=== PATIENT | male | born 1945 | race African-American/Black ===

== ENCOUNTER 2017-05-26 12:06 | Inpatient (IN) | payer MEDICARE, OTHER ==
[~2017-05-26] VITALS: Ht 175.3 cm; Wt 81.6 kg
[2017-05-26 13:15] VITALS: BP 156/80
[2017-05-26] MEDS ORDERED: NIFE60TA14 PO (13:28)
[2017-05-26] MEDS ORDERED: ASPI-612 PO (13:28)
[2017-05-26 13:52] VITALS: BP 130/75
[2017-05-26] MEDS: IV NORMAL SALINE 1,000ML 1,000 ML IV SCH ×2 (14:00→22:19)
[2017-05-26] MEDS ORDERED: DEXTROSE 50% 25 GM / 50ML DISP.SYRIN. IV PRN (14:00)
[2017-05-26] MEDS ORDERED: ENOXAPARIN 40 MG/0.4 ML DISP.SYRIN. SQ SCH (14:00)
[2017-05-26 14:30] VITALS: BP 130/72
[2017-05-26 14:31] LABS: BASO # 0.1 x10^3/uL (0.0-0.2); BASO % 1 % (0-3); EOS # 0.1 x10^3/uL (0.0-0.7); EOS % 1 % (0-3); HEMOGLOBIN 13.4 g/dL (13.0-17.5); LYMPH # 1.2 x10^3/uL (1.0-4.8); LYMPH % 18 % (24-48); MEAN CORPUSCULAR HEMOGLOBIN 30 pg (25-35); MEAN CORPUSCULAR HGB CONC 34 g/dL (31-37); MEAN CORPUSCULAR VOLUME 90 fL (79-100); MONO # 0.5 x10^3/uL (0.0-1.1); MONO % 8 % (0-9); NEUT # 4.8 x10^3uL (1.8-7.7); NEUT % 72 % (31-73); PLATELET COUNT 242 x10^3/uL (140-400); RED BLOOD COUNT 4.45 x10^6/uL (4.30-5.70); RED CELL DISTRIBUTION WIDTH 14.1 % (11.5-14.5); WHITE BLOOD COUNT 6.7 x10^3/uL (4.0-11.0)
[2017-05-26 14:44] LABS: ALBUMIN 3.8 g/dL (3.4-5.0); CALCIUM 9.4 mg/dL (8.5-10.1); GFR 89.1; MAGNESIUM 1.9 mg/dL (1.8-2.4); POTASSIUM 3.9 mmol/L (3.5-5.1); TOTAL BILIRUBIN 0.4 mg/dL (0.2-1.0); TOTAL PROTEIN 7.7 g/dL (6.4-8.2)
[2017-05-26 15:16] LABS: FECAL OB PT POSITIVE (NEG)
[2017-05-26 15:38] VITALS: BP 135/65
--- NOTE | 2017-05-26 15:54 | RAD ---
2 view CXR: Clinical indications: Diabetic ketoacidosis. Hypertension. Former smoker.. Comparison: March 15, 2012. Findings: No acute lung infiltrate or pleural effusion or pulmonary edema or lung mass or pneumothorax is seen. The heart size, pulmonary vasculature, mediastinum and both donna are unremarkable. The osseous structures appear intact. Impression: No acute radiographic abnormality is seen.
[2017-05-26] MEDS: INSULIN ASPART 300 UNITS/3 ML INSULN.PEN SQ SCH ×2 (17:11→19:49)
[2017-05-26 18:38] VITALS: BP 154/76
[2017-05-26] MEDS ORDERED: INSULIN DETEMIR 300 UNITS/3 ML INSULN.PEN. SQ SCH (21:00)
[2017-05-26] MEDS ORDERED: PNEUMOC CONJ VACC 23-VALENT 0.5 ML VIAL. VAX IM ONE (21:00)
[2017-05-26 22:05] VITALS: BP 161/78
[2017-05-26 22:45] LABS: BACTERIA,URINE 0 /HPF (0-FEW); BILIRUBIN,URINE NEG (NEG); CLARITY,URINE CLEAR; COLOR,URINE YELLOW; GLUCOSE,URINE >=1000 mg/dL (NEG); NITRITE,URINE NEG (NEG); RBC,URINE OCC /HPF (0-2); SQUAMOUS EPITHELIAL CELL,UR FEW /LPF; UROBILINOGEN,URINE 0.2 mg/dL (0.2 mg/dL)
[2017-05-27] VITALS (7 sets, daily range): BP systolic 134–160; BP diastolic 67–74
[2017-05-27 01:08] LABS: HEMOGLOBIN A1C 11.4 % (4.8-5.6)
[2017-05-27] MEDS: IV NORMAL SALINE 1,000ML 1,000 ML IV SCH ×4 (04:27→21:53)
[2017-05-27] MEDS ORDERED: ACETAMINOPHEN 500 MG TABLET PO PRN (04:45)
[2017-05-27 07:12] LABS: CREATININE 0.9 mg/dL (0.7-1.3); GFR 100.7; POTASSIUM 3.8 mmol/L (3.5-5.1)
[2017-05-27 07:32] LABS: BASO # 0.1 x10^3/uL (0.0-0.2); BASO % 1 % (0-3); EOS # 0.4 x10^3/uL (0.0-0.7); EOS % 6 % (0-3); HEMATOCRIT 38.4 % (39.0-53.0); HEMOGLOBIN 12.9 g/dL (13.0-17.5); LYMPH # 1.7 x10^3/uL (1.0-4.8); LYMPH % 27 % (24-48); MEAN CORPUSCULAR HEMOGLOBIN 30 pg (25-35); MEAN CORPUSCULAR HGB CONC 34 g/dL (31-37); MEAN CORPUSCULAR VOLUME 89 fL (79-100); MONO # 0.7 x10^3/uL (0.0-1.1); MONO % 10 % (0-9); NEUT # 3.6 x10^3uL (1.8-7.7); NEUT % 56 % (31-73); PLATELET COUNT 228 x10^3/uL (140-400); RED BLOOD COUNT 4.29 x10^6/uL (4.30-5.70); WHITE BLOOD COUNT 6.4 x10^3/uL (4.0-11.0)
[2017-05-27] MEDS: PANTOPRAZOLE 40 MG TABLET. PO SCH (07:33)
[2017-05-27] MEDS: INSULIN ASPART 300 UNITS/3 ML INSULN.PEN SQ SCH ×4 (08:22→21:56)
[2017-05-27] MEDS ORDERED: PNEUMOC CONJ VACC 23-VALENT 0.5 ML VIAL. VAX IM ONE (09:00)
[2017-05-27] MEDS: metFORMIN 500 MG TABLET PO SCH (09:47)
[2017-05-27] MEDS: IPRATRPIUM/ALBUTEROL 0.5/2.5MG 3 ML NEBU. NEB SCH ×3 (11:03→21:28)
[2017-05-27] MEDS: INSULIN DETEMIR 300 UNITS/3 ML INSULN.PEN. SQ SCH (21:57)
[2017-05-28 03:00] VITALS: BP 163/75
[2017-05-28] MEDS: IV NORMAL SALINE 1,000ML 1,000 ML IV SCH (05:00)
[2017-05-28] MEDS: IPRATRPIUM/ALBUTEROL 0.5/2.5MG 3 ML NEBU. NEB SCH ×2 (06:03→11:02)
[2017-05-28 07:53] LABS: BASO # 0.1 x10^3/uL (0.0-0.2); BASO % 1 % (0-3); EOS # 0.4 x10^3/uL (0.0-0.7); EOS % 6 % (0-3); HEMATOCRIT 36.5 % (39.0-53.0); HEMOGLOBIN 12.2 g/dL (13.0-17.5); LYMPH # 1.7 x10^3/uL (1.0-4.8); LYMPH % 25 % (24-48); MEAN CORPUSCULAR HEMOGLOBIN 30 pg (25-35); MEAN CORPUSCULAR HGB CONC 34 g/dL (31-37); MEAN CORPUSCULAR VOLUME 90 fL (79-100); MONO # 0.7 x10^3/uL (0.0-1.1); MONO % 11 % (0-9); NEUT # 3.9 x10^3uL (1.8-7.7); NEUT % 57 % (31-73); PLATELET COUNT 222 x10^3/uL (140-400); RED BLOOD COUNT 4.07 x10^6/uL (4.30-5.70); RED CELL DISTRIBUTION WIDTH 14.3 % (11.5-14.5); WHITE BLOOD COUNT 6.7 x10^3/uL (4.0-11.0)
[2017-05-28 07:59] LABS: CALCIUM 8.8 mg/dL (8.5-10.1); CREATININE 0.7 mg/dL (0.7-1.3); GFR 134.5; POTASSIUM 3.4 mmol/L (3.5-5.1)
[2017-05-28] MEDS: metFORMIN 500 MG TABLET PO SCH (08:28)
[2017-05-28] MEDS: PANTOPRAZOLE 40 MG TABLET. PO SCH (08:28)
[2017-05-28] MEDS: INSULIN ASPART 300 UNITS/3 ML INSULN.PEN SQ SCH ×2 (08:31→11:30)
[2017-05-28] MEDS: INSULIN DETEMIR 300 UNITS/3 ML INSULN.PEN. SQ SCH (08:34)
[2017-05-28 09:32] VITALS: BP 125/73
[2017-05-28 11:13] VITALS: BP 144/65
[2017-05-28] MEDS ORDERED: INSU100I17 SQ (13:49)
[2017-05-28] MEDS ORDERED: INSU100I27 SQ (13:54)
[2017-05-28] MEDS ORDERED: PANT40TA3 PO (13:59)
[2017-05-28] MEDS ORDERED: METF500T4 PO (13:59)
--- NOTE | 2017-05-28 22:07 | PN ---
DATE: SUBJECTIVE: This is a 71-year-old gentleman who came in with problems of acute onset of DKA and type 2 diabetes. The patient's blood sugar has come down gradually. We have increased his insulin and started him on metformin. He states he is feeling much better overall. We will continue to monitor him on that and he is continuing to receive sliding scale in addition to his long-acting insulin. Otherwise, the patient denies any headaches, visual change, blurred vision, or double vision. OBJECTIVE: VITAL SIGNS: Blood pressure 140/60, respiratory rate 18, pulse 90, afebrile. LUNGS: Diminished throughout, poor movement of air. CARDIOVASCULAR: Regular sinus rhythm. ABDOMEN: Soft and nontender. ASSESSMENT AND PLAN: The patient is otherwise doing reasonably well with his labs improving overall. The patient will continue to be monitored carefully, make further evaluation, did have positive for blood in the stool and will continue to be monitored on that as an outpatient, probably will need to be scoped as well. In any case, impression, new onset of diabetes, diabetic ketoacidosis, positive blood in the stool. We will continue to monitor the patient, accordingly make further evaluation on him as indicated, diabetic teaching for diet and so forth and so on. MCKINLEY TORRES MD DR: SAWYER/brittany JOB#: [id number] / [id number]
== END 2017-05-28 14:45 | disposition home or self-care (01) | DRG 638 ==
LOC: ICU 12:06
PROVIDERS: ADMIT Family Medicine; ATTEND Family Medicine
DX: E11.10 Type 2 diabetes mellitus with ketoacidosis without coma (principal); K92.1 Melena; F17.210 Nicotine dependence, cigarettes, uncomplicated; I10 Essential (primary) hypertension; Z81.8 Family history of other mental and behavioral disorders; K92.89 Other specified diseases of the digestive system
CPT/HCPCS: 36415; 71020; 80048; 80053; 81001; 82274; 82947; 83036; 83735; 84443; 85025; 87641; 90732; 94640; J1815; J7620; J7030

== ENCOUNTER 2017-06-02 10:35 | Emergency (ER) | payer MEDICARE, OTHER ==
[~2017-06-02] VITALS: Ht 175.3 cm; Wt 81.6 kg
[~2017-06-02 10:35] MED LIST: ASPI-612 PO; INSU100I17 SQ; INSU100I27 SQ; METF500T4 PO; NIFE60TA14 PO; PANT40TA3 PO
--- NOTE | 2017-06-02 10:52 | PHYS DOC ---
Past History Past Medical History: Diabetes, Hypertension Past Surgical History: No Surgical History Alcohol Use: None Drug Use: None Adult General Chief Complaint Chief Complaint: BLOOD SUGAR PROBLEM HPI HPI 71-year-old male patient states he was diagnosed with diabetes recently and discharged from Hospital one week ago with instruction to take 25 units of Levemir twice a day and 1-4 units of NovoLog according to blood sugar number. Patient states he woke up around 9 AM and took 25 units of NovoLog instead of Levemir around 10 AM. Patient states he did not take any other insulin today. Patient had 1 glass of orange juice after his mistake and his blood sugar was 214 by EMS. Patient denies dizziness, confusion, nausea and vomiting, weakness. Review of Systems Review of Systems Constitutional: Denies fever or chills [] Eyes: Denies change in visual acuity, redness, or eye pain [] HENT: Denies nasal congestion or sore throat [] Respiratory: Denies cough or shortness of breath [] Cardiovascular: No additional information not addressed in HPI [] GI: Denies abdominal pain, nausea, vomiting, bloody stools or diarrhea [] : Denies dysuria or hematuria [] Musculoskeletal: Denies back pain or joint pain [] Integument: Denies rash or skin lesions [] Neurologic: Denies headache, focal weakness or sensory changes [] Endocrine: Denies polyuria or polydipsia [] All other systems were reviewed and found to be within normal limits, except as documented in this note. Allergies Allergies Allergies Coded Allergies Type Severity Reaction Last Updated Verified No Known Drug Allergies 05/26/17 No Physical Exam Physical Exam Constitutional: Well developed, well nourished, no acute distress, non-toxic appearance. [] HENT: Normocephalic, atraumatic, bilateral external ears normal, oropharynx moist, no oral exudates, nose normal. [] Eyes: PERRLA, EOMI, conjunctiva normal, no discharge. [] Neck: Normal range of motion, no tenderness, supple, no stridor. [] Cardiovascular:Heart rate regular rhythm, no murmur [] Lungs & Thorax: Bilateral breath sounds clear to auscultation [] Abdomen: Bowel sounds normal, soft, no tenderness, no masses, no pulsatile masses. [] Skin: Warm, dry, no erythema, no rash. [] Back: No tenderness, no CVA tenderness. [] Extremities: No tenderness, no cyanosis, no clubbing, ROM intact, no edema. [] Neurologic: Alert and oriented X 3, normal motor function, normal sensory function, no focal deficits noted. [] Psychologic: Affect normal, judgement normal, mood normal. [] Current Patient Data Vital Signs Vital Signs Date Time Temp Pulse Resp B/P (MAP) Pulse Ox O2 Delivery O2 Flow Rate FiO2 06/02/17 10:40 97.9 116 18 100 Room Air EKG EKG [] Radiology/Procedures Radiology/Procedures [] Course & Med Decision Making Course & Med Decision Making Pertinent Labs reviewed. (See chart for details) Evaluation of patient in ER showed 71-year-old male patient who took insulin NovoLog 25 units instead of Levemir. Patient had blood sugar of 214 by EMS and more than 200 in ER at arrival. Blood sugar was 108 later on and after eating increased to 158. Patient was observed in ER more than 2 hours with a stable vital signs. Patient was instructed to check his blood sugar more often today and follow with his primary care physician in 2-3 days. [] Dragon Disclaimer Dragon Disclaimer This electronic medical record was generated, in whole or in part, using a voice recognition dictation system. Departure Departure: Impression: Primary Impression: Uncontrolled diabetes mellitus Disposition: HOME, SELF-CARE (At 1315) Condition: IMPROVED Referrals: MCKINLEY TORRES MD (PCP) Patient Instructions: 1800 Calorie Diet for Diabetes Meal Planning, Diabetes Meal Planning Guide Additional Instructions: Rechecked your blood sugar frequently today Follow-up with your primary care physician in 2 or 3 days Return to ER if not getting better SUHAS ALMAZAN MD Jun 02, 2017 10:52
[2017-06-02 11:09] LABS: BASO # 0.1 x10^3/uL (0.0-0.2); BASO % 1 % (0-3); EOS # 0.2 x10^3/uL (0.0-0.7); EOS % 3 % (0-3); HEMATOCRIT 37.9 % (39.0-53.0); HEMOGLOBIN 12.7 g/dL (13.0-17.5); LYMPH % 17 % (24-48); MEAN CORPUSCULAR HEMOGLOBIN 30 pg (25-35); MEAN CORPUSCULAR HGB CONC 34 g/dL (31-37); MEAN CORPUSCULAR VOLUME 89 fL (79-100); MONO # 0.6 x10^3/uL (0.0-1.1); MONO % 9 % (0-9); NEUT # 4.2 x10^3uL (1.8-7.7); NEUT % 70 % (31-73); PLATELET COUNT 254 x10^3/uL (140-400); RED BLOOD COUNT 4.24 x10^6/uL (4.30-5.70); RED CELL DISTRIBUTION WIDTH 13.8 % (11.5-14.5); WHITE BLOOD COUNT 6.1 x10^3/uL (4.0-11.0)
[2017-06-02 11:49] LABS: ALBUMIN 3.3 g/dL (3.4-5.0); ALBUMIN/GLOBULIN RATIO 0.9 (1.0-1.7); CALCIUM 9.1 mg/dL (8.5-10.1); CREATININE 0.9 mg/dL (0.7-1.3); GFR 100.7; POTASSIUM 3.8 mmol/L (3.5-5.1); TOTAL BILIRUBIN 0.4 mg/dL (0.2-1.0); TOTAL PROTEIN 6.9 g/dL (6.4-8.2)
[2017-06-02 12:34] LABS: BACTERIA,URINE 0 /HPF (0-FEW); BILIRUBIN,URINE NEG (NEG); CLARITY,URINE CLEAR; COLOR,URINE YELLOW; GLUCOSE,URINE 500 mg/dL (NEG); NITRITE,URINE NEG (NEG); RBC,URINE 0 /HPF (0-2); UROBILINOGEN,URINE 0.2 mg/dL (0.2 mg/dL); WBC,URINE 0 /HPF (0-4)
[2017-06-02 13:19] VITALS: BP 146/72
== END 2017-06-02 13:27 | disposition home or self-care (01) ==
LOC: ER 10:35
DX: E11.9 Type 2 diabetes mellitus without complications (principal); I10 Essential (primary) hypertension
CPT/HCPCS: 36415; 80053; 81001; 82947; 85025; 99284

== ENCOUNTER 2017-10-31 20:48 | Inpatient (IN) | payer MEDICARE, OTHER ==
[~2017-10-31] VITALS: Ht 175.3 cm; Wt 90.9 kg
[~2017-10-31 20:48] MED LIST changes: -METF500T4 PO; +METF500T5 PO
--- NOTE | 2017-10-31 21:50 | PHYS DOC ---
Past History Past Medical History: Diabetes, Hypertension Past Surgical History: Other Alcohol Use: None Drug Use: None Adult General Chief Complaint Chief Complaint: BLOODY STOOL HPI HPI Patient is a 71 year old male who presents with complaint of bloody stools. The patient states that he has been having trouble with diarrhea over the past 5 days. Patient went to see his primary doctor, Dr. Torres, 2 days ago for evaluation. He was instructed to provide stool samples at the next visit tomorrow. The patient however started passing blood in his stools today. He called his primary doctor and was told to come to the emergency department for evaluation. Patient denies any associated fevers. Patient states that he has had 2 stools with bright red blood present. Denies any history of GI bleeding. Patient is not on any blood thinners. Denies any pain currently but states that he had abdominal cramping prior to his bowel movements. Denies dizziness or lightheadedness. Review of Systems Review of Systems Constitutional: Denies fever or chills [] Eyes: Denies change in visual acuity, redness, or eye pain [] HENT: Denies nasal congestion or sore throat [] Respiratory: Denies cough or shortness of breath [] Cardiovascular: Denies chest pain or edema[] GI: Intermittent abdominal pain, bloody stools, diarrhea, denies nausea or vomiting[] : Denies dysuria or hematuria [] Musculoskeletal: Denies back pain or joint pain [] Integument: Denies rash or skin lesions [] Neurologic: Denies headache, focal weakness or sensory changes [] All other systems were reviewed and found to be within normal limits, except as documented in this note. Allergies Allergies Allergies Coded Allergies Type Severity Reaction Last Updated Verified No Known Drug Allergies 05/26/17 No Physical Exam Physical Exam Constitutional: Alert, afebrile, no acute distress. [] HENT: Normocephalic, atraumatic, bilateral external ears normal, oropharynx moist, no oral exudates, nose normal. [] Eyes: PERRLA, EOMI, conjunctiva normal, no discharge. [] Neck: Normal range of motion, no tenderness, supple, no stridor. [] Cardiovascular: Tachycardia, regular rhythm, no murmur [] Lungs & Thorax: Bilateral breath sounds clear to auscultation [] Abdomen: Bowel sounds normal, soft, no tenderness, no masses, no pulsatile masses. [] Skin: Warm, dry, no erythema, no rash. [] Back: No tenderness, no CVA tenderness. [] Extremities: No tenderness, no cyanosis, no clubbing, ROM intact, no edema. [] Neurologic: Alert and oriented X 3, normal motor function, normal sensory function, no focal deficits noted. [] Current Patient Data Vital Signs Vital Signs Date Time Temp Pulse Resp B/P (MAP) Pulse Ox O2 Delivery O2 Flow Rate FiO2 10/31/17 20:51 98.5 125 20 96 Room Air EKG EKG Interpreted by me: heart rate 104, sinus tachycardia, normal intervals, normal axis, no acute ST/T-wave abnormalities present[] Radiology/Procedures Radiology/Procedures [address] [address] IMAGING REPORT Signed PATIENT: MAYA VILLAGRAN ACCOUNT: [id number] : 1945 LOCATION: ER AGE: 71 SEX: M EXAM STATUS: REG ER ORD. PHYSICIAN: MIGUEL ÁNGEL KIM MD REASON: GI bleeding, diarrhea PROCEDURE: CT ABD PELV W/ IV CONTRST ONLY Indication:BRIGHT RED BLOOD IN STOOL, DIARRHEA, LOW PELVIC PAIN TECHNIQUE: CT abdomen and pelvis with IV contrast with multiplanar reformats. COMPARISON: None FINDINGS: Heart is normal in size. No pericardial or pleural effusion. Clear lung bases. Stable low attenuating lesion is seen in segment 7 of the liver measuring 2.1 x 1.6 cm most likely cystic biliary hamartoma. Otherwise, liver within normal limits. Spleen within normal limits. No radiopaque gallstones. Pancreas is within normal limits. 2.8 x 2.0 cm low attenuating lesion is seen in the right adrenal gland, previously 2.1 x 1.8 cm. 2.1 x 1.7 cm nodule is seen in the left adrenal gland, previously 2.1 x 1.6 cm. These are stable and are most likely is adrenal adenomas. No nephrolithiasis or hydronephrosis. No enlarged retroperitoneal or pelvic adenopathy. Large fat-containing left inguinal hernia noted. Shotty pelvic lymph nodes noted, nonspecific may be reactive. No bowel obstruction. There is suboptimal distention of the descending colon with very mild pericolonic inflammatory changes. Circumferential urinary bladder wall thickening noted without focal lesion. Prostate is enlarged measuring 6.1 x 5.4 cm. Mild to moderate diffuse infrarenal atherosclerotic calcifications of the aorta noted. No suspicious bony lesion. IMPRESSION: 1. Large left and small right fat-containing bilateral inguinal hernia. 2. Suggestion of mild pericolonic inflammatory changes in the descending colon which is suboptimally distended. Findings are questionable for mild colitis. 3. 5. Millimeters stable bilateral adrenal adenomas. Enlarged prostate. 4. Circumferential urinary bladder wall thickening may be secondary to chronic outlet obstruction or cystitis. Clinically related with urinalysis. Electronically signed by: Jonathan Davis DO (10/31/2017 11:08 PM) [facility] DICTATED AND SIGNED BY: JONATHAN DAVIS DO DATE: 10/31/172300 CC: MCKINLEY TORRES MD; MIGUEL ÁNGEL KIM MD ~ [] Course & Med Decision Making Course & Med Decision Making Pertinent Labs and Imaging studies reviewed. (See chart for details) Patient started on IV fluids in the emergency department. Patient's findings appear consistent with hemorrhagic colitis. I spoke with the patient's primary physician, Dr. Torres, who agreed to accept patient in the hospital for IV fluids and antibiotics. So the patient regarding plan of care and he was in agreement at time of disposition. Dragon Disclaimer Dragon Disclaimer This electronic medical record was generated, in whole or in part, using a voice recognition dictation system. Departure Departure: Impression: Primary Impression: Colitis Additional Impression: Lower GI bleeding Disposition: ADMITTED INPATIENT Admitting Physician: Mckinley Torres Condition: STABLE Referrals: MCKINLEY TORRES MD (PCP) Problem Qualifiers MIGUEL ÁNGEL KIM MD Oct 31, 2017 21:50
[2017-10-31] MEDS ORDERED: IOHEXOL 300 MG/ML 75 ML VIAL. IV ONE (22:00)
[2017-10-31] MEDS ORDERED: IV NORMAL SALINE 1,000ML 1,000 ML IV SCH (22:00)
[2017-10-31] MEDS ORDERED: CONTRAST GIVEN MC PRN (22:00)
[2017-10-31 22:11] LABS: BASO % 0 % (0-3); EOS # 0.3 x10^3/uL (0.0-0.7); EOS % 4 % (0-3); HEMATOCRIT 33.1 % (39.0-53.0); LYMPH # 1.8 x10^3/uL (1.0-4.8); LYMPH % 21 % (24-48); MEAN CORPUSCULAR HEMOGLOBIN 30 pg (25-35); MEAN CORPUSCULAR HGB CONC 33 g/dL (31-37); MEAN CORPUSCULAR VOLUME 90 fL (79-100); MONO # 1.6 x10^3/uL (0.0-1.1); MONO % 19 % (0-9); NEUT # 4.9 x10^3uL (1.8-7.7); NEUT % 57 % (31-73); PLATELET COUNT 343 x10^3/uL (140-400); RED BLOOD COUNT 3.69 x10^6/uL (4.30-5.70); RED CELL DISTRIBUTION WIDTH 14.7 % (11.5-14.5); WHITE BLOOD COUNT 8.6 x10^3/uL (4.0-11.0)
[2017-10-31 22:24] LABS: ALBUMIN 3.3 g/dL (3.4-5.0); ALBUMIN/GLOBULIN RATIO 0.9 (1.0-1.7); CALCIUM 8.7 mg/dL (8.5-10.1); CREATININE 0.7 mg/dL (0.7-1.3); GFR 134.5; POTASSIUM 4.5 mmol/L (3.5-5.1); TOTAL BILIRUBIN 0.3 mg/dL (0.2-1.0); TOTAL PROTEIN 7.1 g/dL (6.4-8.2)
--- NOTE | 2017-10-31 23:12 | RAD ---
Indication:BRIGHT RED BLOOD IN STOOL, DIARRHEA, LOW PELVIC PAIN TECHNIQUE: CT abdomen and pelvis with IV contrast with multiplanar reformats. COMPARISON: None FINDINGS: Heart is normal in size. No pericardial or pleural effusion. Clear lung bases. Stable low attenuating lesion is seen in segment 7 of the liver measuring 2.1 x 1.6 cm most likely cystic biliary hamartoma. Otherwise, liver within normal limits. Spleen within normal limits. No radiopaque gallstones. Pancreas is within normal limits. 2.8 x 2.0 cm low attenuating lesion is seen in the right adrenal gland, previously 2.1 x 1.8 cm. 2.1 x 1.7 cm nodule is seen in the left adrenal gland, previously 2.1 x 1.6 cm. These are stable and are most likely is adrenal adenomas. No nephrolithiasis or hydronephrosis. No enlarged retroperitoneal or pelvic adenopathy. Large fat-containing left inguinal hernia noted. Shotty pelvic lymph nodes noted, nonspecific may be reactive. No bowel obstruction. There is suboptimal distention of the descending colon with very mild pericolonic inflammatory changes. Circumferential urinary bladder wall thickening noted without focal lesion. Prostate is enlarged measuring 6.1 x 5.4 cm. Mild to moderate diffuse infrarenal atherosclerotic calcifications of the aorta noted. No suspicious bony lesion. IMPRESSION: 1. Large left and small right fat-containing bilateral inguinal hernia. 2. Suggestion of mild pericolonic inflammatory changes in the descending colon which is suboptimally distended. Findings are questionable for mild colitis. 3. 5. Millimeters stable bilateral adrenal adenomas. Enlarged prostate. 4. Circumferential urinary bladder wall thickening may be secondary to chronic outlet obstruction or cystitis. Clinically related with urinalysis. Electronically signed by: Jonathan Davis DO (10/31/2017 11:08 PM) [facility]
[2017-11-01] MEDS ORDERED: IV NORMAL SALINE 1,000ML 1,000 ML IV SCH
[2017-11-01] MEDS ORDERED: ONDANSETRON PF 4 MG/2 ML VIAL. IV PRN
[2017-11-01 00:25] LABS: BACTERIA,URINE 0 /HPF (0-FEW); BILIRUBIN,URINE NEG (NEG); CLARITY,URINE CLEAR; COLOR,URINE YELLOW; GLUCOSE,URINE NEG (NEG); NITRITE,URINE NEG (NEG); RBC,URINE 0 /HPF (0-2); SQUAMOUS EPITHELIAL CELL,UR OCC /LPF; UROBILINOGEN,URINE 0.2 mg/dL (0.2 mg/dL); WBC,URINE RARE /HPF (0-4)
[2017-11-01 00:25] LABS: FECAL OB PT POSITIVE (NEG)
[2017-11-01 00:47] VITALS: BP 147/75
[2017-11-01] MEDS ORDERED: INSULIN LISPRO 300 UNITS/3 ML INSULN.PEN. SQ PRN (05:15)
[2017-11-01] MEDS ORDERED: INSULIN GLARGINE 300 UNITS/3 ML INSULN.PEN. SQ SCH (05:15)
[2017-11-01 05:47] VITALS: BP 143/67
[2017-11-01 06:35] LABS: BASO % 0 % (0-3); EOS # 0.4 x10^3/uL (0.0-0.7); EOS % 5 % (0-3); HEMATOCRIT 31.8 % (39.0-53.0); HEMOGLOBIN 10.7 g/dL (13.0-17.5); LYMPH # 1.5 x10^3/uL (1.0-4.8); LYMPH % 20 % (24-48); MEAN CORPUSCULAR HEMOGLOBIN 30 pg (25-35); MEAN CORPUSCULAR HGB CONC 34 g/dL (31-37); MEAN CORPUSCULAR VOLUME 90 fL (79-100); MONO # 1.5 x10^3/uL (0.0-1.1); MONO % 21 % (0-9); NEUT % 54 % (31-73); PLATELET COUNT 323 x10^3/uL (140-400); RED BLOOD COUNT 3.55 x10^6/uL (4.30-5.70); RED CELL DISTRIBUTION WIDTH 14.8 % (11.5-14.5); WHITE BLOOD COUNT 7.5 x10^3/uL (4.0-11.0)
[2017-11-01 06:37] LABS: CALCIUM 8.5 mg/dL (8.5-10.1); CREATININE 0.7 mg/dL (0.7-1.3); GFR 134.5; POTASSIUM 3.4 mmol/L (3.5-5.1)
[2017-11-01] MEDS: PANTOPRAZOLE 40 MG TABLET. PO SCH (07:36)
[2017-11-01] MEDS ORDERED: DEXTROSE 50% 25 GM / 50ML DISP.SYRIN. IV PRN (07:45)
[2017-11-01] MEDS: INSULIN LISPRO 300 UNITS/3 ML INSULN.PEN. SQ SCH ×3 (08:00→16:44)
[2017-11-01] MEDS ORDERED: ZOLPIDEM 5 MG TABLET. PO PRN (09:15)
--- NOTE | 2017-11-01 09:30 | HP ---
ADMIT DATE: 11/01/2017 HISTORY OF PRESENT ILLNESS: A 71-year-old gentleman having diarrhea for the last week and then began to have problems with blood in his stool and some abdominal cramping. With this in mind, he came in through the Emergency Room, was seen, his pulse was up as high as 125, blood pressure was stable. The patient was admitted for further evaluation of acute GI bleed. The CAT scan demonstrated a problem with colitis in the descending colon, which probably would be responsible for his diarrhea as well as the bleeding, so he was admitted for IV fluids, IV antibiotic therapy and further consultation. PAST MEDICAL HISTORY: He has had history of colitis, rectal bleeding in the past. Orthopedic Surgery on his right shoulder, diabetes, smoking exposure, anemia. IMMUNIZATIONS: Tetanus diphtheria, tetanus toxoid, influenza pneumococcal are all up to date. ALLERGIES: He has no known drug allergies. HOME MEDICATIONS: Nifedipine ER, aspirin, Protonix, metformin, NovoLog, FlexPen, Levemir FlexTouch. ALLERGIES: No known allergies. SOCIAL HISTORY: The patient has a past history of smoking in the past. Denies alcohol or drug use. REVIEW OF SYSTEMS: The patient denies headaches, visual change, blurred vision, double vision. Denies chest pain, shortness of breath. Does have abdominal pain and cramping. Neurologically intact. PHYSICAL EXAMINATION: GENERAL: Pleasant -[place] gentleman. VITAL SIGNS: Blood pressure 140/72, respiratory rate 20, pulse 125, temperature 98.5. HEENT: The patient's head was atraumatic, normocephalic. Eyes: PERRLA without jaundice. Mouth and throat were normal. NECK: Supple. LUNGS: Clear. CARDIOVASCULAR: Regular sinus rhythm. ABDOMEN: Soft, diffuse tenderness in that left mid to left lower quadrant area with no rebounding, but some guarding. LABORATORY DATA: The patient's stool was Hemoccult positive and the patient will be monitored carefully for such. His hemoglobin and hematocrit has gone down just gradually from 11-10.7. The patient's coags were negative. Chemistries unremarkable. Blood sugar elevated slightly. Albumin low at 3.3. IMPRESSION: He has colitis, acute gastrointestinal bleed, diarrhea, mild protein malnutrition. The patient was placed on IV antibiotic therapy as well. We will continue to monitor the patient accordingly. MCKINLEY TORRES MD DR: SAWYER/brittany JOB#: [id number] / [id number]
[2017-11-01 11:03] VITALS: BP 137/74
[2017-11-01] MEDS: metroNIDAZOLE 500 MG TABLET PO SCH ×2 (14:19→21:29)
[2017-11-01 14:34] VITALS: BP 121/54
[2017-11-01 19:10] VITALS: BP 159/92
[2017-11-01] MEDS: ACETAMINOPHEN 500 MG TABLET PO PRN (19:37)
[2017-11-01] MEDS: INSULIN GLARGINE 300 UNITS/3 ML INSULN.PEN. SQ SCH (20:23)
[2017-11-01] MEDS: levoFLOXacin 500 MG TABLET PO SCH (21:29)
[2017-11-01] MEDS: TAMSULOSIN 0.4 MG CAP.ER.24H. PO SCH (21:29)
[2017-11-01] MEDS: IV NORMAL SALINE 1,000ML 1,000 ML IV SCH (21:29)
[2017-11-01 22:15] VITALS: BP 152/80
[2017-11-02] MEDS: IV NORMAL SALINE 1,000ML 1,000 ML IV SCH ×3 (03:15→23:46)
[2017-11-02 05:00] VITALS: BP 125/68
[2017-11-02] MEDS: ACETAMINOPHEN 500 MG TABLET PO PRN (05:09)
[2017-11-02] MEDS: metroNIDAZOLE 500 MG TABLET PO SCH ×3 (05:47→21:26)
[2017-11-02 06:35] LABS: HEMATOCRIT 31.9 % (39.0-53.0); HEMOGLOBIN 10.7 g/dL (13.0-17.5); RED BLOOD COUNT 3.58 x10^6/uL (4.30-5.70); RED CELL DISTRIBUTION WIDTH 14.6 % (11.5-14.5); WHITE BLOOD COUNT 8.1 x10^3/uL (4.0-11.0)
[2017-11-02 06:38] LABS: CALCIUM 8.5 mg/dL (8.5-10.1); CREATININE 0.8 mg/dL (0.7-1.3); GFR 115.3; POTASSIUM 3.7 mmol/L (3.5-5.1)
[2017-11-02] MEDS: INSULIN LISPRO 300 UNITS/3 ML INSULN.PEN. SQ SCH ×3 (07:34→17:00)
[2017-11-02] MEDS: PANTOPRAZOLE 40 MG TABLET. PO SCH (07:38)
[2017-11-02 11:37] VITALS: BP 151/78
[2017-11-02 15:00] VITALS: BP 147/77
[2017-11-02 19:26] VITALS: BP 126/83
[2017-11-02] MEDS: INSULIN GLARGINE 300 UNITS/3 ML INSULN.PEN. SQ SCH (20:09)
[2017-11-02] MEDS: TAMSULOSIN 0.4 MG CAP.ER.24H. PO SCH (21:26)
[2017-11-02] MEDS: LACTOBACILLUS RHAMNOSUS GG 1 CAPSULE. PO SCH (21:26)
[2017-11-02] MEDS: levoFLOXacin 500 MG TABLET PO SCH (21:26)
[2017-11-02 23:02] VITALS: BP 148/75
--- NOTE | 2017-11-02 23:46 | PN ---
DATE: SUBJECTIVE: A 71-year-old male in with acute GI bleed, also diarrhea. Still having diarrhea and having problems there. The patient also has colitis. We are trying to advance his diet to see if he can tolerate that before being discharged home. OBJECTIVE: VITAL SIGNS: Otherwise, the patient's vital signs are basically stable. 140/70, respiration 18, pulse up to 113, afebrile. LUNGS: Clear. CARDIOVASCULAR: Tachy. ABDOMEN: Soft, diffuse tenderness in the left lower quadrant area consistent with colitis, sinus tachycardia. The patient continues to be monitored and continue on IV antibiotic therapy as well for the colitis. MCKINLEY TORRES MD DR: SAWYER/brittany JOB#: [id number] / [id number]
[2017-11-03] MEDS: metroNIDAZOLE 500 MG TABLET PO SCH ×2 (05:15→13:38)
[2017-11-03 07:20] VITALS: BP 137/67
[2017-11-03] MEDS ORDERED: metFORMIN 500 MG TABLET PO SCH ×2 (08:00)
[2017-11-03] MEDS: INSULIN LISPRO 300 UNITS/3 ML INSULN.PEN. SQ SCH ×2 (08:00→12:00)
[2017-11-03] MEDS: IV NORMAL SALINE 1,000ML 1,000 ML IV SCH (09:15)
[2017-11-03] MEDS: PANTOPRAZOLE 40 MG TABLET. PO SCH (09:27)
[2017-11-03] MEDS: LACTOBACILLUS RHAMNOSUS GG 1 CAPSULE. PO SCH (09:27)
[2017-11-03] MEDS: MESALAMINE 400 MG CAP.DRTAB. PO SCH ×2 (10:46→13:37)
[2017-11-03] MEDS: LOPERAMIDE 2 MG CAPSULE PO ONE ×2 (10:46→11:00)
[2017-11-03] MEDS ORDERED: LOPERAMIDE 2 MG CAPSULE PO ONE (11:00)
[2017-11-03 14:47] VITALS: BP 159/72
--- NOTE | 2017-11-03 18:48 | DS ---
DATE OF DISCHARGE: 11/03/2017 HOSPITAL COURSE: The patient is being transferred down to [place]. The patient came in with some loose stools and diarrhea back on 11/01/2017. The patient possibly had some blood in his stool, but over the next few days it stopped; however, again it reappeared here. This afternoon is the day of discharge or transfer and so we have transferred him down to [place] for further evaluation and treatment thereof. His labs remained basically stable with hemoglobin of 10.7 and 31. His blood sugars have been good as well. The CT scan did show colitis in the descending colon and the patient had been placed on some antibiotics. He also had a large left and small right fat-containing bilateral inguinal hernia, pericolonic inflammatory disease. The patient also had wall thickening of his bladder wall. In any case, the patient was stable. He was transferred for GI consult not available at this [facility]. FINAL DIAGNOSIS: See MRAD. Decreased activity, transferred to [place], GI hospitalist to take on care there. IMPRESSION AND PLAN: Acute gastrointestinal bleed, acute colitis, type 2 diabetes, moderate protein malnutrition, hypokalemia, hematochezia, Clostridium difficile was negative. Other stool cultures are pending at this time. He will be transferred or transferred as indicated. MCKINLEY TORRES MD DR: SAWYER/brittany JOB#: [id number] / [id number]
[2017-11-05] MEDS ORDERED: PANTOPRAZOLE 40 MG TABLET. PO SCH (09:00)
== END 2017-11-03 16:56 | disposition short-term general hospital (02) | DRG 378 ==
LOC: ER 20:48 → 1 SOUTH 23:45
PROVIDERS: ADMIT Family Medicine; ATTEND Family Medicine
DX: K92.1 Melena (principal); E44.1 Mild protein-calorie malnutrition; E11.9 Type 2 diabetes mellitus without complications; I10 Essential (primary) hypertension; K52.9 Noninfective gastroenteritis and colitis, unspecified; E87.6 Hypokalemia; K40.20 Bilateral inguinal hernia, without obstruction or gangrene, not specified as recurrent; Z79.4 Long term (current) use of insulin; Z79.82 Long term (current) use of aspirin; Z79.899 Other long term (current) drug therapy; Z87.891 Personal history of nicotine dependence; Z68.29 Body mass index [BMI] 29.0-29.9, adult
CPT/HCPCS: 36415; 74177; 80048; 80053; 81001; 82274; 82947; 83690; 85025; 85027; 85610; 85730; 86850; 86900; 86901; 87045; 87324; 96360; 96361; J1815; J1956; J3490; Q9967; 99285-25; J7030

== ENCOUNTER → 2019-06-07 | Outpatient (CLI) | payer MEDICARE, OTHER ==
[~2019-06-07] MED LIST changes: +METF500T16 PO; -METF500T5 PO
[2019-06-07 10:28] LABS: BASO # 0.1 x10^3/uL (0.0-0.2); BASO % 1 % (0-3); EOS # 0.2 x10^3/uL (0.0-0.7); EOS % 3 % (0-3); HEMATOCRIT 40.8 % (39.0-53.0); HEMOGLOBIN 13.5 g/dL (13.0-17.5); LYMPH # 1.7 x10^3/uL (1.0-4.8); LYMPH % 24 % (24-48); MEAN CORPUSCULAR HEMOGLOBIN 31 pg (25-35); MEAN CORPUSCULAR HGB CONC 33 g/dL (31-37); MEAN CORPUSCULAR VOLUME 92 fL (79-100); MONO # 0.5 x10^3/uL (0.0-1.1); MONO % 8 % (0-9); NEUT # 4.7 x10^3uL (1.8-7.7); NEUT % 65 % (31-73); PLATELET COUNT 284 x10^3/uL (140-400); RED BLOOD COUNT 4.43 x10^6/uL (4.30-5.70); RED CELL DISTRIBUTION WIDTH 14.3 % (11.5-14.5); WHITE BLOOD COUNT 7.1 x10^3/uL (4.0-11.0)
[2019-06-07 10:33] LABS: ALBUMIN 3.9 g/dL (3.4-5.0); ALBUMIN/GLOBULIN RATIO 0.9 (1.0-1.7); CALCIUM 9.2 mg/dL (8.5-10.1); CREATININE 0.9 mg/dL (0.7-1.3); GFR 100.1; POTASSIUM 3.7 mmol/L (3.5-5.1); TOTAL BILIRUBIN 0.3 mg/dL (0.2-1.0); TOTAL PROTEIN 8.2 g/dL (6.4-8.2)
== END | disposition home or self-care (01) ==
LOC: LAB 10:03
PROVIDERS: ATTEND Nurse Practitioner Adult Health
DX: E11.65 Type 2 diabetes mellitus with hyperglycemia (principal); I10 Essential (primary) hypertension; E78.1 Pure hyperglyceridemia
CPT/HCPCS: 36415; 80053; 80061; 85025